=== PATIENT | male | born 1990 | race Caucasian/White ===

== ENCOUNTER 2022-06-03 10:57 | Emergency (ER) | payer SELFPAY | END 2022-06-03 13:18 | disposition home or self-care (01) | LOC: JD.ED 10:57 | DX: F41.0 Panic disorder [episodic paroxysmal anxiety] (principal); Z88.1 Allergy status to other antibiotic agents; Z91.09 Other allergy status, other than to drugs and biological substances | CPT/HCPCS: 36415; 80053; 83735; 83880; 84484; 85025; 85379; 85610; 85730; 93005; 93010; 99284; 99285 ==